=== PATIENT | male | born 1995 | race Caucasian/White ===

== ENCOUNTER 2021-05-23 03:25 | Emergency (ER) | payer OTHER ==
[2021-05-23 03:32] VITALS: BP 145/103; PULSE 72; TEMP 98.7; BMI 27.3
== END 2021-05-23 03:46 | disposition home or self-care (01) ==
LOC: FER 03:25
DX: K02.9 Dental caries, unspecified (principal); K05.30 Chronic periodontitis, unspecified
CPT/HCPCS: 99281-25

== ENCOUNTER 2022-08-18 14:39 | Emergency (ER) | payer BC, OTHER ==
[2022-08-18] MEDS ORDERED: IBUPROFEN 600 MG TABLET (FP) PO ONE ×2 (14:59→15:00)
[2022-08-18 15:10] VITALS: BP 141/97; PULSE 84; RESP 17; TEMP 98.8; BMI 31.3
== END 2022-08-18 15:45 | disposition home or self-care (01) ==
LOC: FER 14:39
DX: R07.1 Chest pain on breathing (principal)
CPT/HCPCS: 71046-TC-FY; 93005; 99284-25